=== PATIENT | female | born 1995 | race Caucasian/White ===

== ENCOUNTER → 2022-06-19 11:56 | Outpatient (BNVA) | payer SELFPAY | PROVIDERS: Visit Provider Emergency Medicine | DX: J02.9 Acute pharyngitis, unspecified (principal); B34.9 Viral infection, unspecified | CPT/HCPCS: 87071; 87880 ==

== ENCOUNTER → 2023-10-01 14:18 | Outpatient (BNVA) | payer BC, SELFPAY | PROVIDERS: Visit Provider Emergency Medicine | DX: J02.9 Acute pharyngitis, unspecified (principal) | CPT/HCPCS: 87071; 87880 ==

== ENCOUNTER → 2024-10-08 10:38 | Outpatient (BNVA) | payer OTHER, SELFPAY | PROVIDERS: Visit Provider Obstetrics & Gynecology | DX: Z87.42 Personal history of other diseases of the female genital tract (principal) | CPT/HCPCS: 84146; 84702 ==